=== PATIENT | female | born 1955 | race Caucasian/White ===

== ENCOUNTER 2024-03-06 09:30 | Emergency (ER) | payer OTHER, MEDICARE ==
[~2024-03-06] VITALS: Ht 162.6 cm; Wt 104.3 kg
[2024-03-06] MEDS ORDERED: HYDROcodone 5-APAP 325 TAB PO ONE (11:00)
== END 2024-03-06 12:15 | disposition home or self-care (01) ==
LOC: ER 09:30
DX: M25.562 Pain in left knee (principal); W01.0XXA Fall on same level from slipping, tripping and stumbling without subsequent striking against object, initial encounter
CPT/HCPCS: 73562-LT; 99283-25; A9270